=== PATIENT | female | born 1955 | race Caucasian/White ===

== ENCOUNTER 2022-02-25 12:11 | Day surgery (SDC) | payer MEDICARE, OTHER ==
[2022-02-25] MEDS ORDERED: Marcaine Mpf 0.5% Vial 30 Ml IJ ONE (12:12)
[2022-02-25] MEDS ORDERED: Depo-Medrol 40 MG/ML IM ONE (12:12)
[2022-02-25] MEDS ORDERED: DIPRIVAN 200 MG/20 ML IV ONE (14:43)
--- NOTE | 2022-02-25 16:52 | XRAY ---
Indication: Bilateral SI joint injection. Intraoperative fluoroscopy provided for 15 seconds. 5 digital spot image submitted for interpretation images demonstrates posterior needle tip projecting over the left and right SI joints. Correlate with intraoperative findings/report.
--- NOTE | 2022-02-25 16:56 | XRAY ---
15 seconds of fluoroscopy was used in surgery for a bilateral sacroiliac joint injection.
[2022-02-25] MEDS ORDERED: Lactated Ringers 1,000 ML IV ONE (17:38)
== END 2022-02-25 15:03 | disposition home or self-care (01) ==
LOC: SDC-PAIN 12:11
PROVIDERS: ATTEND Psychiatry & Neurology Pain Medicine
DX: M46.1 Sacroiliitis, not elsewhere classified (principal); Z79.899 Other long term (current) drug therapy
CPT/HCPCS: 01992; 27096; 72202; 77002; G0260; J1030; J1642; J2704